=== PATIENT | female | born 1935 | race Two or more races ===

== ENCOUNTER 2020-06-18 20:44 | Emergency (ER) | payer MEDICARE, BC ==
[~2020-06-18] VITALS: Ht 162.6 cm; Wt 77.1 kg
[2020-06-18 20:44] VITALS: BP_SYST 150
[~2020-06-18 20:44] MED LIST: ASPI-1393 PO; CALCIUM PLUS D PO; CAT.1 PO; CORCR40 PO; GLIM1TAB PO; GLU500 PO; HYDR100T25 PO; LOVA40TA75 PO; MULT-634 PO; NEU300
[2020-06-18] MEDS ORDERED: CARV25TA55 PO (21:26)
[2020-06-18] MEDS ORDERED: FURO-150 PO (21:27)
[2020-06-18] MEDS ORDERED: LOSA100T3 PO (21:28)
[2020-06-18] MEDS ORDERED: NITR-85 PO (21:31)
--- NOTE | 2020-06-18 21:33 | NUR ---
Medication reconciliation completed with information provided by patient/med bottles avil. Any prior medication reconciliation on file was reviewed and corrected.
--- NOTE | 2020-06-18 21:50 | NUR ---
Patient left without being seen.
== END 2020-06-18 21:50 | disposition left against medical advice (07) ==
LOC: SED 20:44
DX: R53.1 Weakness (principal); R53.83 Other fatigue; Z53.21 Procedure and treatment not carried out due to patient leaving prior to being seen by health care provider
CPT/HCPCS: 82962